=== PATIENT | female | born 1965 | race Caucasian/White ===

== ENCOUNTER 2023-07-08 16:38 | Emergency (ER) | payer OTHER, SELFPAY ==
[2023-07-08 16:46] VITALS: BP 132/100
--- NOTE | 2023-07-08 18:34 | ED.SKININJ ---
HPI-Injury
General
Chief Complaint: Eye Problems
Source: patient
Exam Limitations: none
Time Seen by Provider: 07/08/23 18:34
Nursing documentation reviewed up to this point in time: agreed with
Travel History
Have you had any contact with someone who has COVID-19?: No
Do you have any symptoms of coronavirus? Fever > 100 degrees, chills, cough, shortness of breath, sore throat, loss of taste or smell, muscle aches, or headache?: No
History of Present Illness-Injury
Initial Injury comments:
57-year-old female with no significant past medical history states she started wearing her '1 day contact lenses' again a couple weeks ago. She states they are very flimsy. Yesterday while she was doing work on her computer her right eye became
irritated and she attempted multiple times to remove the contact but could not. She thinks it is stuck in the upper right corner of her eye. She kept picking at it and picking at it but could not get anything out. She woke up today with right eye
discomfort, sealed shut with pus. She denies pain in the eyeball, it is more of a irritation. She denies headache.
Past History
Past History
ED Past Medical History: None
ED Past Surgical History: Orthopedic
Social History
Tobacco: Non-smoker
Alcohol: Occasional
Drug: None
Personal:
Living: with family
Employment: Not employed
Family History
Family History: CAD
Review of Systems
Review of Systems
Allergies reviewed?: Yes
All Other Systems: ROS reviewed and negative except as documented in HPI and ROS
EENT: Reports other (Irritation, redness, swelling right eye)
ABD/GI: Denies nausea
Neurological: Denies headache
Phy Exam
Physical Exam
Physical Exam:
PHYSICAL EXAMINATION:
General: no apparent distress, not acutely ill
Neuro: alert and oriented.
Psychiatric: well kept. interactive and cooperative
Musculoskeletal: Moves with ease
Skin: Warm, pink.
Eye Exam
Eye Exam: PERRL, cornea clear, conjunctiva normal (Right conjunctiva mildly swollen with mild chemosis, fluorescein stain shows no corneal abrasion. Lid lifted, no foreign body. No purulent discharge, there is watery discharge.) and globe normal
Course
Orders/Labs/Results
Orders:
Orders
07/08/23 18:37
Visual Acuity- Treatment ONCE
07/08/23 19:06
Tetracaine HCl [Tetracaine 0.5% Ophthalmic Solution] 1 drop .ROUTE .STK-MED ONE
Vital Signs
Initial and Last Documented VS:
Initial Vital Signs
Temp Pulse Resp BP Pulse Ox
99.0 F 102 20 132/100 96
07/08/23 16:46 07/08/23 16:46 07/08/23 16:46 07/08/23 16:46 07/08/23 16:46
Last Documented Vital Signs
Temp Pulse Resp BP Pulse Ox
99.0 F 102 20 117/86 96
07/08/23 16:46 07/08/23 16:46 07/08/23 16:46 07/08/23 19:07 07/08/23 16:46
MDM/Problems Addressed
Differential Diagnosis Includes:
Corneal abrasion, foreign body, conjunctivitis
MDM/Problems Addressed:
57-year-old female with no significant past medical history states she started wearing her '1 day contact lenses' again a couple weeks ago. She states they are very flimsy. Yesterday while she was doing work on her computer her right eye became
irritated and she attempted multiple times to remove the contact but could not. She thinks it is stuck in the upper right corner of her eye. She kept picking at it and picking at it but could not get anything out. She woke up today with right eye
discomfort, sealed shut with pus. She denies pain in the eyeball, it is more of a irritation. She denies headache.
Eye exam reveals no foreign body. The eye is irritated, reddened and mild chemosis. Visual acuity noted
Because she was picking at her eye and thought the swelling of the conjunctiva was in fact her flimsy contact lens and she kept picking at it and she says she had pus drainage from the eye this morning, I will send a prescription to your pharmacy
for antibiotic eyedrops
Refer to ophthalmology as needed.
*Critical Care Note
Total Time (30-74mins, 75-104mins- exclusive of procedures): Not Applicable
ED Attending Note
-
Portions of this chart may have been created with voice recognition software.� Occasional wrong word or��sound alike� substitutions may have occurred due to the inherent limitations of voice recognition software.
Discharge Plan
Departure
Patient Disposition: Home (Routine Discharge)
Date of Disposition: 07/08/23
Time of Disposition: 18:41
Patient with high blood pressure during this ER visit?: Yes
Condition: Good
Discharge Problem:
Conjunctivitis, right eye
Instructions: Conjunctivitis (Noninfectious Pinkeye)
Prescriptions:
New
ciprofloxacin HCl 0.3 % drops
2 drp ophthalmic (eye) Q4H 5 Days Qty: 5 0RF
No Action
quetiapine 100 MG tablet
100 mg PO HS PRN (Reason: insomnia)
cephalexin 500 MG capsule
500 mg PO QID Qty: 44 0RF
Rx Instructions:
Take for 11 days
Referrals:
Franklyn Neri MD [Active] - Follow up in 5-7 days
Activity Restrictions/Additional Instructions:
As we discussed, no contact lens wearing until the eye is 100% better.
I sent a prescription to your pharmacy for antibiotic eyedrops to use 4 times a day for 5 days
I have provided you the name of an quality improvement specialist to follow-up with if you are not improving daily or not 100% better in 5 days.
Interventions
Interventions:
*Risk Screen - Suicide Last Done: 07/08/23 19:07
*General Assessment Last Done: 07/08/23 19:07
*Neglect/Abuse Screening Last Done: 07/08/23 19:07
*Nursing Disposition Last Done: 07/08/23 19:07
Discharge Date and Time
Discharge Date/Time: 07/08/23 19:09
[2023-07-08 19:07] VITALS: BP 117/86
== END 2023-07-08 19:09 | disposition home or self-care (01) ==
LOC: EMR 16:38
PROVIDERS: EMERGENCY PHYSICIAN Emergency Medicine
DX: H10.31 Unspecified acute conjunctivitis, right eye (principal); R03.0 Elevated blood-pressure reading, without diagnosis of hypertension
CPT/HCPCS: 99283

== ENCOUNTER 2023-07-24 18:49 | Emergency (ER) | payer SELFPAY ==
[2023-07-24 18:53] VITALS: BP 153/103; BMI 20.8
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
[2023-07-24 19:48] VITALS: BP 128/98
[2023-07-24] MEDS: LIDOCAINE 4% PATCH 1 PATCH TOPICAL (19:55)
[2023-07-24] MEDS: MOTRIN 600 MG PO (19:55)
[2023-07-24 20:35] VITALS: BP 132/97
== END 2023-07-24 21:21 | disposition home or self-care (01) ==
LOC: EMR 18:49
PROVIDERS: EMERGENCY PHYSICIAN Emergency Medicine; FAMILY PHYSICIAN Registered Nurse
DX: M54.50 Low back pain, unspecified (principal); V49.40XA Driver injured in collision with unspecified motor vehicles in traffic accident, initial encounter; R03.0 Elevated blood-pressure reading, without diagnosis of hypertension
CPT/HCPCS: 99283; 72110

== ENCOUNTER 2024-07-06 19:21 | Emergency (ER) | payer OTHER, SELFPAY ==
[2024-07-06 19:31] VITALS: BMI 21.1
--- NOTE | 2024-07-06 19:39 | ED.GENMED ---
History of Present Illness
General
Chief Complaint: Hallucinations
Source: patient and ambulance crew
Exam Limitations: none
Time Seen by Provider: 07/06/24 19:24
Nursing documentation reviewed up to this point in time: agreed with
History of Present Illness
History of Present Illness:
58-year-old female presenting to the emergency department via EMS. She claims that she saw mice in her home and she found the first things that she could find and started spraying spray foam as well as tire bakeshop cleaner in her home. She admits that
this was not an appropriate decision at the time. She understands where she is she understands the date she has no thoughts of harm herself or others.
Past History
Past History
ED Past Medical History: None
ED Past Surgical History: Orthopedic
Social History
Tobacco: Non-smoker
Alcohol: Occasional
Drug: None
Personal:
Living: with family
Employment: Not employed
Family History
Family History: CAD
Review of Systems
Review of Systems
Allergies reviewed?: Yes
All Other Systems: ROS reviewed and negative except as documented in HPI and ROS
Phy Exam
Physical Exam
Physical Exam:
GENERAL: Alert , in no apparent distress
EYE: pupils equal and reactive
NECK: Supple, no significant adenopathy.
ENT: o/p clr, mmm.
CARDIAC: Regular rate and rhythm .
LUNGS: Clear breath sounds bilaterally, no acute respiratory distress, no wheezes/rales/rhonchi
ABDOMEN: Soft, without focal tenderness, no r/g, no cvat
NEUROLOGICAL: Alert and oriented, no focal neuro deficits
SKIN: Warm and dry, skin intact.
MUSCULOSKELETAL: No edema, well perfused.
PSYCH: Normal and appropriate interaction.
Course
Vital Signs
Initial and Last Documented VS:
Initial Vital Signs
Pulse Resp
106 23
07/06/24 19:27 07/06/24 19:27
Last Documented Vital Signs
Temp Pulse Resp Pulse Ox
98.3 F 97 11 98
07/06/24 19:31 07/06/24 19:30 07/06/24 19:30 07/06/24 19:30
MDM/Problems Addressed
MDM/Problems Addressed:
58-year-old female presenting to the emergency department after calling 911 due to concerns of mice in her home. She was trying to kill the mice with spray foam as well as tire bakeshop cleaner. She does admit that this was not a great choice at the time.
At this point she denies any medical symptoms has no concerns of her living space and does not want any medical evaluation at this time. Her physical examination was normal and her vital signs are normal as well. Patient does have capacity here
stable for discharge return precautions given.
*Critical Care Note
Total Time (30-74mins, 75-104mins- exclusive of procedures): Not Applicable
ED Attending Note
-
Portions of this chart may have been created with voice recognition software.� Occasional wrong word or��sound alike� substitutions may have occurred due to the inherent limitations of voice recognition software.
Discharge Plan
Departure
Patient Disposition: Home (Routine Discharge)
Date of Disposition: 07/06/24
Time of Disposition: 19:40
Patient with high blood pressure during this ER visit?: No
Condition: Good
Covid-19: Not Applicable
Discharge Problem:
Encounter for medical screening examination, Exposure to rodent
Prescriptions:
No Action
quetiapine 100 MG tablet
100 mg PO HS PRN (Reason: insomnia)
cephalexin 500 MG capsule
500 mg PO QID Qty: 44 0RF
Rx Instructions:
Take for 11 days
ciprofloxacin HCl 0.3 % drops
2 drp ophthalmic (eye) Q4H 5 Days Qty: 5 0RF
cyclobenzaprine 5 mg tablet
5 mg PO HS PRN (Reason: muscle spasm) Qty: 6 0RF
lidocaine [Lidoderm] 5 % adhesive patch,medicated
1 patch topical DAILY Qty: 30 0RF
Activity Restrictions/Additional Instructions:
You came to the emergency department for medical screening exam. Here you had normal vital signs and normal physical exam. Please follow closely with your primary care doctor. Return for any worsening, new or concerning symptoms.
Interventions
Interventions:
*Risk Screen - Suicide Last Done: 07/06/24 19:31
*General Assessment Last Done: 07/06/24 19:31
*Neglect/Abuse Screening Last Done: 07/06/24 19:31
ED- Fall Risk Assessment Last Done: 07/06/24 19:31
*ED COVID-19 Vaccine History Last Done: 07/06/24 19:31
ED- Neurological Assessment Last Done: 07/06/24 19:31
ED-Psychological Assessment Last Done: 07/06/24 19:31
Discharge Date and Time
Print Language: TURKMEN
== END 2024-07-06 20:11 | disposition home or self-care (01) ==
LOC: EMR 19:21
PROVIDERS: EMERGENCY PHYSICIAN Emergency Medicine
DX: Z04.89 Encounter for examination and observation for other specified reasons (principal)
CPT/HCPCS: 99282

== ENCOUNTER 2025-04-14 23:33 | Emergency (ER) | payer OTHER, SELFPAY ==
[2025-04-14 23:37] VITALS: BP 176/109
[2025-04-14 23:55] VITALS: BMI 18.5
--- NOTE | 2025-04-14 23:56 | ED.SKININJ ---
HPI-Injury
General
Chief Complaint: Bite
Time Seen by Provider: 04/14/25 23:41
History of Present Illness-Injury
Initial Injury comments:
59-year-old female presents to the emergency department for evaluation of dog bites to the right posterior thigh that occurred 2 days ago. States that this was a family ember's dog and is up-to-date on rabies vaccinations. She is reporting
moderate pain and thus came for evaluation of a possible infection. No fevers or chills. Last tetanus is unknown
Past History
Past History
ED Past Medical History: None
ED Past Surgical History: Orthopedic
Social History
Tobacco: Non-smoker
Alcohol: Occasional
Drug: None
Personal:
Living: with family
Employment: Not employed
Family History
Family History: CAD
Review of Systems
Review of Systems
Allergies reviewed?: Yes
All Other Systems: ROS reviewed and negative except as documented in HPI and ROS
Phy Exam
Physical Exam
Physical Exam:
GEN: Well appearing, NAD, WDWN
HEENT: Oral mucosa moist, no scleral icterus
Cardiac: Regular rate
Lung: No respiratory distress, no tachypnea
MSK: Significant ecchymosis to the right hamstring with numerous puncture wounds, no significant erythema or bogginess, no purulent discharge
Skin: Good color, no pallor or jaundice, no rashes
Neuro: AO x3, moves all extremities freely
Psych: Calm, cooperative
Course
Orders/Labs/Results
Orders:
Orders
04/14/25 23:55
Tetanus/Diphth/Acelpertussis [Adacel] 0.5 ml IM .ONCE ONE
04/15/25 00:13
Ibuprofen [Motrin] 600 mg PO NOW STA
04/15/25 00:32
Tetanus/Diphth/Acelpertussis [Adacel] 0.5 ml .ROUTE .STK-MED ONE
Vital Signs
Initial and Last Documented VS:
Initial Vital Signs
Temp Pulse Resp BP Pulse Ox
97.5 F 84 16 176/109 96
04/14/25 23:37 04/14/25 23:37 04/14/25 23:37 04/14/25 23:37 04/14/25 23:37
Last Documented Vital Signs
Temp Pulse Resp BP Pulse Ox
97.5 F 84 16 176/109 96
04/14/25 23:37 04/14/25 23:37 04/14/25 23:37 04/14/25 23:37 04/14/25 23:56
MDM/Problems Addressed
MDM/Problems Addressed:
Clinically the wounds do not look infected. Will provide antibiotics however patient is advised that this is not indicated at this time and she should continue to observe for signs of infection. Tetanus updated
*Pulse Oximetry
SaO2: 96
Oxygen Mode of Delivery: Room air
Patient hypoxic: no
*Critical Care Note
Total Time (30-74mins, 75-104mins- exclusive of procedures): Not Applicable
ED Attending Note
-
Portions of this chart may have been created with voice recognition software.� Occasional wrong word or��sound alike� substitutions may have occurred due to the inherent limitations of voice recognition software.
Discharge Plan
Departure
Patient Disposition: Home (Routine Discharge)
Date of Disposition: 04/15/25
Time of Disposition: 00:05
Patient with high blood pressure during this ER visit?: No
Discharge Problem:
Dog bite of right thigh
Instructions: Animal Bites (DC)
Prescriptions:
New
amoxicillin-pot clavulanate 875-125 mg tablet
1 tab PO BID Qty: 10 0RF
No Action
trazodone 50 mg Tablet
50 mg PO HS
clonazepam [Klonopin] 1 mg Tablet
1 mg PO DAILY
lisdexamfetamine [Vyvanse] 40 mg Capsule
1 mg PO DAILY
buprenorphine-naloxone [Suboxone] 2-0.5 mg Film
1 film BUCCAL DAILY
Interventions
Interventions:
*Risk Screen - Suicide Last Done: 04/14/25 23:37
*General Assessment Last Done: 04/14/25 23:37
*Neglect/Abuse Screening Last Done: 04/14/25 23:37
*ED COVID-19 Vaccine History Last Done: 04/14/25 23:55
*ED Influenza Vaccine History Last Done: 04/14/25 23:55
ED-Skin Assessment Last Done: 04/14/25 23:55
Discharge Date and Time
Print Language: FRENCH
[2025-04-15] MEDS: MOTRIN 600 MG PO (00:34)
[2025-04-15] MEDS: ADACEL 0.5 ML IM (00:35)
== END 2025-04-15 02:07 | disposition home or self-care (01) ==
LOC: EMR 23:33
PROVIDERS: EMERGENCY PHYSICIAN Emergency Medicine
DX: S71.151A Open bite, right thigh, initial encounter (principal); W54.0XXA Bitten by dog, initial encounter; Z23 Encounter for immunization
CPT/HCPCS: 99283; 90471; 90715